=== PATIENT | male | born 1985 | race Caucasian/White ===

== ENCOUNTER 2020-05-14 17:06 | Emergency (ER) | payer SELFPAY ==
[~2020-05-14] VITALS: Ht 193 cm; Wt 111.1 kg
[~2020-05-14 17:06] MED LIST: IBUPROFEN600 MG PO
[2020-05-14] MEDS ORDERED: CYCLOBENZAPRINE10 MG PO (21:29)
== END 2020-05-14 21:42 | disposition home or self-care (01) ==
LOC: ED 17:06
DX: M54.41 Lumbago with sciatica, right side (principal); F17.200 Nicotine dependence, unspecified, uncomplicated; Z88.8 Allergy status to other drugs, medicaments and biological substances; Z91.030 Bee allergy status; Z91.018 Allergy to other foods
CPT/HCPCS: 99283